=== PATIENT | male | born 1955 | race American Indian/Alaskan Native ===

== ENCOUNTER 2016-11-18 10:52 | Day surgery (SDC) | payer BC ==
[~2016-11-18 10:52] MED LIST: ANCEF/STERILE WATER 2 GM/20 ML 2 GM/20 ML SYRINGE IV NR; NACL 0.9% 1000 ML 1,000 ML IV SCH; NACL BACTERIOSTATIC INFILTRATI ONE; PEPCID PO NR
[2016-11-18] MEDS ORDERED: PERCOCET 5/325 PO PRN (11:16)
[2016-11-18] MEDS ORDERED: DILAUDID IV PRN (11:16)
--- NOTE | 2016-11-18 11:16 | Anesthesia Day of Surgery ---
Anesthesia Day of Surgery - Day of Surgery Patient Examined: Yes Patient H&P Reviewed: Yes Patient is NPO: Yes
--- NOTE | 2016-11-18 11:16 | Anesthesia Consultation ---
Anesthesia Consult and Med Hx Date of service: 11/18/16 - Airway Anesthetic Teeth Evaluation: Good ROM Head & Neck: Adequate Mental/Hyoid Distance: Adequate Mallampati Class: Class II Intubation Access Assessment: Probably Good - Pulmonary Exam CTA: Yes - Cardiac Exam Cardiac Exam: RRR - Pre-Operative Health Status ASA Pre-Surgery Classification: ASA2 Proposed Anesthetic Plan: General - Pulmonary Hx Smoking: Yes (STOPPED 2003,1PPD X 20YRS) Hx Sleep Apnea: No (STAN PRE SCREEN HIGH RISK) - Cardiovascular System Hx Hypertension: No - Central Nervous System Hx Back Pain: Yes (FROM KIDNEY STONE) - Other Systems Hx Cancer: No
[2016-11-18] MEDS ORDERED: VERSED IV NR (12:00)
[2016-11-18] MEDS ORDERED: OMNIPAQUE (300 MG) IR ONE (12:06)
[2016-11-18] MEDS ORDERED: WATER FOR IRRIG STERILE IR ONE (12:06)
--- NOTE | 2016-11-18 12:27 | Post Operative Note ---
Date of procedure: 11/18/16 Pre-op diagnosis: r hydro r ureteral stone Post-op diagnosis: same Findings: as above Procedure: cysto rpg stent Anesthesia: GETA Surgeon: NERY BARNARD Estimated blood loss: none Pathology: none Condition: stable Disposition: PACU
--- NOTE | 2016-11-18 12:28 | Discharge Summary ---
Short Stay Discharge Plan Activity: avoid flexion, other (needs gi eval tomorrow ) Diet: low fat, low cholesterol Special Instructions: other (f/u appt has stent ) Durable Medical Equipment Needed Upon Discharge: other (j stent ) Follow up with: EZIO HER MD [Primary Care Provider] - 7 Days NERY BRANARD MD [Staff Physician] - 7 Days
[2016-11-18] MEDS ORDERED: XYLOCAINE MPF 2% ONE (12:29)
[2016-11-18] MEDS ORDERED: SUBLIMAZE ONE (12:29)
[2016-11-18] MEDS ORDERED: DIPRIVAN 10 MG/ML IV ONE (12:30)
[2016-11-18] MEDS ORDERED: ZOFRAN ONE (12:37)
--- NOTE | 2016-11-18 15:08 | Post Anesthesia Evaluation ---
- Post Anesthesia Evaluation Patient Participated: Yes Airway Patent: Yes Stable Respiratory Function: Yes Nausea/Vomiting: No Temp > 96.8F: Yes Pain Manageable: Yes Adequeate Hydration: Yes Anesthesia Complications: No Block Receding Appropriately: Not Applicable Patient on Ventilator: No
--- NOTE | 2016-11-18 16:07 | Operative Report ---
PREOPERATIVE DIAGNOSES: Inflammatory disease in the abdomen for GI evaluation tomorrow and a large 1 cm right mid ureteral stone with hydronephrosis. POSTOPERATIVE DIAGNOSES: Inflammatory disease in the abdomen for GI evaluation tomorrow and a large 1 cm right mid ureteral stone with hydronephrosis. PROCEDURE: Cystoscopy, right retrograde, right double-J stent. SURGEON: Aayush Mansfield MD ANESTHESIA: General. FINDINGS: This is a gentleman with abdominal pain, found to have some sort of diverticular disease and an inflammatory process in the colon as well as a 1 cm stone causing right hydronephrosis. He now presents for stent insertion. He knows that this will be a staged procedure. He will multiple procedures for the stone, but we need to see what is going on with his colon as well. DESCRIPTION OF PROCEDURE: The patient was brought and placed on the operating table. Following induction of anesthesia, placed in lithotomy position, prepped and draped in usual sterile fashion. Cystourethroscopy showed inflammatory changes, but no epithelial changes towards the dome and left side of the bladder. No biopsies were required. The epithelium looked intact. At this point, a retrograde showed a large stone mid ureter. We initially had some trouble getting a stent by it, but eventually with the irrigation got a 6-[place] double J coiled in the kidney and bladder. The patient tolerated the procedure well. Plan will depend on his GI evaluation. Follow up lithotripsy, ureteroscopy as needed in a staged procedure. JOB# [id number] ISAC/GE
[2016-11-18 18:54] VITALS: BP 119/65
--- NOTE | 2016-11-19 09:39 | Fluoroscopy Report ---
FLUOROSCOPY RETROGRADE UROGRAPHY History: Right ureteral stone. Findings: Fluoroscopy was provided by radiology during retrograde urography by urology. 6 fluoroscopic images were captured. [employer] film demonstrates an approximate 7 mm calcification in the right paraspinal soft tissues at the level of L3. Subsequent images demonstrate injection of contrast agent in the right renal collecting system which confirms a right ureteral stone at the level of L3. A right ureteral stent was placed which adequately drains the right renal collecting system. The stone was not removed per the operative notes. The left pyelogram was not performed. Impression: Right ureteral stone as described. Right ureteral stent placement.
== END 2016-11-18 14:16 | disposition home or self-care (01) ==
LOC: OR 10:52
PROVIDERS: ATTEND Urology
DX: N13.2 Hydronephrosis with renal and ureteral calculous obstruction (principal); K52.9 Noninfective gastroenteritis and colitis, unspecified; Z87.891 Personal history of nicotine dependence; Z84.1 Family history of disorders of kidney and ureter; Z80.9 Family history of malignant neoplasm, unspecified; Z82.49 Family history of ischemic heart disease and other diseases of the circulatory system
CPT/HCPCS: 52332; 74420; A4217; C1758; C1769; C2617; J0690; J2405; J2704; J3010; J7030; Q9967

== ENCOUNTER 2016-12-10 09:10 | Day surgery (SDC) | payer BC ==
[~2016-12-10 09:10] MED LIST changes: -NACL 0.9% 1000 ML 1,000 ML IV SCH; -NACL BACTERIOSTATIC INFILTRATI ONE; -PEPCID PO NR
[2016-12-10] MEDS ORDERED: NACL BACTERIOSTATIC INFILTRATI ONE (09:48)
[2016-12-10] MEDS ORDERED: PEPCID PO NR (10:00)
[2016-12-10] MEDS ORDERED: PERCOCET 5/325 PO PRN (10:00)
[2016-12-10] MEDS ORDERED: TORADOL IV PRN (10:00)
[2016-12-10] MEDS ORDERED: VERSED IV NR (10:00)
[2016-12-10] MEDS ORDERED: ANCEF/STERILE WATER 2 GM/20 ML 2 GM/20 ML SYRINGE IV NR (10:00)
[2016-12-10] MEDS ORDERED: MORPHINE IV PRN (10:00)
[2016-12-10] MEDS ORDERED: NACL 0.9% 1000 ML 1,000 ML IV SCH (10:00)
--- NOTE | 2016-12-10 10:27 | Anesthesia Consultation ---
Anesthesia Consult and Med Hx - Airway Anesthetic Teeth Evaluation: Good ROM Head & Neck: Adequate Mental/Hyoid Distance: Adequate Mallampati Class: Class II Intubation Access Assessment: Probably Good - Pulmonary Exam CTA: Yes - Cardiac Exam Cardiac Exam: RRR - Pre-Operative Health Status ASA Pre-Surgery Classification: ASA2 Proposed Anesthetic Plan: General - Pulmonary Hx Smoking: Yes (STOPPED 2003,1PPD X 20YRS) Hx Sleep Apnea: No (STAN PRE SCREEN HIGH RISK) - Cardiovascular System Hx Hypertension: No - Central Nervous System Hx Back Pain: Yes (FROM KIDNEY STONE) - Other Systems Hx Cancer: No
--- NOTE | 2016-12-10 10:28 | Anesthesia Day of Surgery ---
Anesthesia Day of Surgery - Day of Surgery Patient Examined: Yes Patient H&P Reviewed: Yes Patient is NPO: Yes
[2016-12-10] MEDS ORDERED: REGLAN ONE (10:30)
[2016-12-10] MEDS ORDERED: ZOFRAN ONE (10:30)
[2016-12-10] MEDS ORDERED: SUBLIMAZE ONE (10:30)
[2016-12-10] MEDS ORDERED: XYLOCAINE MPF 2% ONE (10:30)
[2016-12-10] MEDS ORDERED: DIPRIVAN 10 MG/ML IV ONE (10:30)
[2016-12-10] MEDS ORDERED: LACTATED RINGERS 1,000 ML ONE (11:12)
--- NOTE | 2016-12-10 11:26 | Short Stay Summary ---
Short Stay Documentation Date of service: 12/10/16 - History H&P: obtained from office - Allergies and Medications Current Medications: Allergies spider venom Allergy (Verified 11/17/16 12:04) Hives Home Medications Medication Instructions Recorded Confirmed Last Taken Type Mv-Mn/Iron/FA/Herbal Cmplx#190 1 tab PO DAILY 11/17/16 12/01/16 11/11/16 History [Vitamin D3 Complete Caplet] Vitamin A 8,000 unit PO DAILY 11/17/16 12/01/16 11/11/16 History Vitamin E [Vitamin E] 1 cap PO DAILY 11/17/16 12/01/16 11/11/16 History Vitamin K2 [Vitamin K2] 40 mcg PO DAILY 11/17/16 12/01/16 11/11/16 History oxyCODONE /ACETAMINOPHEN [Percocet 1 tab PO PRN PRN 11/17/16 12/10/16 12/06/16 History 5/325 mg] Active Medications Famotidine (Pepcid) 20 mg PO PREOP NR Stop: 12/10/16 18:00 Last Admin: 12/10/16 09:51 Dose: 20 mg Sodium Chloride (Nacl 0.9% 1000 Ml) 1,000 mls @ 75 mls/hr IV DIRECT MAREN Last Admin: 12/10/16 09:55 Dose: 75 mls/hr Cefazolin Sodium (Ancef/Sterile Water 2 Gm/20 Ml) 2 gm in 20 mls @ 80 mls/hr IV PREOP NR PRN Reason: Protocol Stop: 12/10/16 17:00 Ketorolac Tromethamine (Toradol) 30 mg IV ONCE PRN PRN Reason: Pain, Moderate (4-6) Stop: 12/10/16 15:00 Midazolam HCl (Versed) 2 mg IV PREOP NR Stop: 12/10/16 23:59 Last Admin: 12/10/16 10:21 Dose: 2 mg Morphine Sulfate (Morphine) 2 mg IV Q10MIN PRN PRN Reason: Pain, Moderate (4-6) Stop: 12/10/16 16:00 Oxycodone/Acetaminophen (Percocet 5/325) 1 tab PO ONCE PRN PRN Reason: Pain, Moderate (4-6) Stop: 12/10/16 16:00 - Brief post op/procedure progress note Date of procedure: 12/10/16 Pre-op diagnosis: rt ureteral stone Post-op diagnosis: same Procedure: eswl Anesthesia: GETA Surgeon: ANNY ARIAS Estimated blood loss: none Condition: stable - Hospital course Hospital course: percocet, post op info on chart, strainer - Disposition Condition at discharge: Stable Disposition: DISCHARGED TO HOME OR SELFCARE Short Stay Discharge Plan Follow up with: EZIO HER MD [Primary Care Provider] - 7 Days
[2016-12-10 12:17] VITALS: BP 107/77
--- NOTE | 2016-12-10 14:13 | Operative Report ---
PREOPERATIVE DIAGNOSIS: Right proximal ureteral stone status post stent. POSTOPERATIVE DIAGNOSIS: Right proximal ureteral stone status post stent. PROCEDURE: Extracorporal shock wave lithotripsy (staged procedure). SURGEON: Andrew Crawley MD ANESTHESIA: General. ESTIMATED BLOOD LOSS: Minimal. FLUIDS: Crystalloid. COMPLICATIONS: No complications. INDICATIONS: This patient is a 61-year-old gentleman seen by Dr. Mansfield in the office with an 8 mm proximal ureteral stone. He underwent a previous cystoscopy, stent for pain. He presents now for a staged lithotripsy. DESCRIPTION OF PROCEDURE: The patient was taken to the operative suite, placed in a supine position. After adequate general anesthesia, stone was localized in two planes using fluoroscopy. Extracorporal shock wave lithotripsy was administered in maximum kV of 5 and 3000 shocks. The patient tolerated the procedure well. Adequate fragmentation could be appreciated. He was extubated and taken to the recovery room. He will go home on Percocet and follow up in the office. JOB# [id number] [facility]ello/GE
== END 2016-12-10 13:13 | disposition home or self-care (01) ==
LOC: OR 09:10
PROVIDERS: ATTEND Urology
DX: N20.1 Calculus of ureter (principal); G47.33 Obstructive sleep apnea (adult) (pediatric); Z91.038 Other insect allergy status; Z87.891 Personal history of nicotine dependence
CPT/HCPCS: 50590; J0690; J2250; J2405; J2704; J2765; J3010; J7030; J7120

== ENCOUNTER 2017-02-10 09:57 | Outpatient (CLI) | payer BC ==
--- NOTE | 2017-02-10 11:55 | Cat Scan Report ---
CT of the abdomen and pelvis without contrast. History: Ureteral stone. Findings: In the mid right ureter at the level of the pelvic brim, there is a 6 mm calculus with moderate dilatation of the right proximal ureter and right pelvicalyceal system. There are several stones within each kidney, but no hydronephrosis is seen on the left. No renal masses are seen. The left ureter is unremarkable. The liver, spleen, and pancreas are unremarkable. There is ectasia of the distal abdominal aorta which measures 3.2 cm in diameter. 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 There is ectasia of the proximal right common iliac artery. The wall of the collapsed urinary bladder appears thickened. Impression: 1. 6 mm right mid ureteral calculus with moderate obstructive uropathy. 2. Multiple bilateral intrarenal stones. 3. Ectasia of the distal abdominal aorta and aneurysmal dilatation of the left common iliac artery. 4. Thickening of the bladder wall may be due to the collapsed state of the urinary bladder. Clinical correlation is advised.
== END 2017-02-10 09:58 | disposition home or self-care (01) ==
LOC: CT 09:57
PROVIDERS: ATTEND Urology
DX: N20.2 Calculus of kidney with calculus of ureter (principal); N13.9 Obstructive and reflux uropathy, unspecified; I72.3 Aneurysm of iliac artery; I77.811 Abdominal aortic ectasia; Z87.891 Personal history of nicotine dependence
CPT/HCPCS: 74176